=== PATIENT | female | born 1985 | race Two or more races ===

== ENCOUNTER 2018-01-19 09:07 | Emergency (ER) | payer OTHER ==
--- NOTE | 2018-01-19 09:29 | EDPHY ---
H & P Time Seen by Provider: 01/19/18 09:19 HPI/ROS: CHIEF COMPLAINT: Sore throat HISTORY OF PRESENT ILLNESS: 32-year-old female presents to the emergency department with sore throat. She has had a sore throat for last few days. She has 2 boys that were diagnosed with strep and 1 developed scarlet fever. They are currently on antibiotics. She has had strep pharyngitis in the past. No fevers or chills. She denies dysphagia. No other cold symptoms including rhinorrhea, nasal congestion or cough. ROS: No fevers, chills, dysphagia, neck pain, rash. Past Medical/Surgical History: Negative Social History: and lives in [place] Smoking Status: Never smoked Physical Exam: Afebrile nontoxic-appearing. She has no trismus or muffled voice. She has posterior pharyngeal injection with exudate noted. Small tonsils. No uvular swelling or shift. Neck is supple with anterior lymphadenopathy palpated. Chest is clear to auscultation in all lopez with no wheezing, rhonchi or rales. Heart regular rate rhythm without murmur. Constitutional: Initial Vital Signs Temperature (C) 36.7 C 01/19/18 09:10 Heart Rate 75 01/19/18 09:10 Respiratory Rate 16 01/19/18 09:10 O2 Sat (%) 97 01/19/18 09:10 O2 Delivery Mode Room Air Allergies/Adverse Reactions: No Known Allergies Allergy (Unverified 01/19/18 09:13) Home Medications: Medication Instructions Recorded Penicillin V Potassium 500 mg PO BID #20 tablet 01/19/18 MDM/Departure - MDM ED Course/Re-evaluation: 32-year-old female presents to the emergency department with sore throat. Clinically I think she likely has strep pharyngitis. I do not think testing is indicated. She has 2 boys that her currently taking antibiotics for strep pharyngitis and 1 developed scarlatina rash. She will be treated with penicillin 500 mg twice daily for 10 days. She was encouraged to discard of her toothbrush or sterilize it somehow. She will return if she develops dysphagia, fever, rash, or if she feels worse in any way. - Depart Disposition: Home, Routine, Self-Care Clinical Impression: Strep pharyngitis Condition: Good Instructions: Strep Throat (ED) Additional Instructions: Penicillin twice daily for 10 days. Ibuprofen 600 mg every 8 hr as needed for pain. Sterilize hyou toothbrush as discussed. Return to the emergency department if you develop difficulty swallowing, difficulty breathing, fever, rash, or if you feel worse in any way. Prescriptions: Penicillin V Potassium 500 mg PO BID #20 tablet Referrals: Ruben Jimenez MD [Medical Doctor] - 2-3 days, if not improved (Primary care provider second time worker)
[2018-01-19 09:47] VITALS: BP 111/58
== END 2018-01-19 09:43 | disposition home or self-care (01) ==
DX: J02.0 Streptococcal pharyngitis (principal)